=== PATIENT | male | born 1965 | race Caucasian/White ===

== ENCOUNTER 2019-03-19 04:02 | Inpatient (IN) | payer MEDICAID ==
[~2019-03-19] VITALS: Ht 180.3 cm; Wt 106.1 kg
[2019-03-19] MEDS ORDERED: VANCOMYCIN PER PHARMACY MC PRN (04:30)
[2019-03-19] MEDS ORDERED: MORPHINE SULFATE 4 MG/ML VIAL. IV PRN (04:30)
[2019-03-19] MEDS ORDERED: ONDANSETRON PF 4 MG/2 ML VIAL. IV PRN (04:30)
[2019-03-19 04:42] LABS: BASO # 0.1 x10^3/uL (0.0-0.2); BASO % 1 % (0-3); EOS # 0.6 x10^3/uL (0.0-0.7); EOS % 6 % (0-3); HEMATOCRIT 47.6 % (39.0-53.0); HEMOGLOBIN 16.7 g/dL (13.0-17.5); LYMPH # 2.5 x10^3/uL (1.0-4.8); LYMPH % 23 % (24-48); MEAN CORPUSCULAR HEMOGLOBIN 30 pg (25-35); MEAN CORPUSCULAR HGB CONC 35 g/dL (31-37); MEAN CORPUSCULAR VOLUME 86 fL (79-100); MONO # 1.3 x10^3/uL (0.0-1.1); MONO % 12 % (0-9); NEUT # 6.2 x10^3uL (1.8-7.7); NEUT % 58 % (31-73); PLATELET COUNT 203 x10^3/uL (140-400); RED BLOOD COUNT 5.55 x10^6/uL (4.30-5.70); RED CELL DISTRIBUTION WIDTH 13.6 % (11.5-14.5); WHITE BLOOD COUNT 10.8 x10^3/uL (4.0-11.0)
[2019-03-19 04:56] LABS: CALCIUM 9.6 mg/dL (8.5-10.1); CREATININE 1.1 mg/dL (0.7-1.3); GFR 70.6; POTASSIUM 3.6 mmol/L (3.5-5.1)
[2019-03-19] MEDS ORDERED: IV NORMAL SALINE 1000ML BAG 1,000 ML IV ONE (05:00)
[2019-03-19] MEDS ORDERED: oxyCODONE IR 5 MG TABLET PO ONE (05:00)
[2019-03-19 05:01] LABS: ALBUMIN 4.1 g/dL (3.4-5.0); TOTAL BILIRUBIN 1.8 mg/dL (0.2-1.0); TOTAL PROTEIN 8.2 g/dL (6.4-8.2)
--- NOTE | 2019-03-19 05:57 | NUR ---
Pharmacy Vancomycin Dosing Note S:Consulted to monitor and dose vancomycin started 03/19/19. O:BROCK SANTOS is a 53 year old M with Cellulitis . Height: 5 feet, 0 inches Weight: 97.087372 kg [place] Body Weight: 50.00 Adjusted Body Weight: 69.00 Dosing Weight: Actual Other Antibiotics: LABS: Last BUN: 28 Last Creatinine: 1.1 Creatinine Clearance: 77 mL/min Last WBC: 10.8 Last Procalcitonin: Tmax (past 24 hours): Microbiology: I/O: Drug Levels: Last level: on at Last dose given 03/19/19 at 0600 Vancomycin Dosing: Loading Dose: 2000 mg x1 Dosing Weight: Actual Target Trough: 10-20 A: Based on: WT AND CRCL P: 1. Begin Vancomycin 1500 mg IV q12h 2. Follow up Trough level on 03/20/19 at 1730 3. Pharmacy will continue to monitor, follow and adjust therapy as needed. LUIS ENRIQUE MYERS RPH, 03/19/19 0557 Signed: 03/19/19 at 0557 by LUIS ENRIQUE MYERS RPH PHA
[2019-03-19] MEDS ORDERED: VANCOMYCIN 2 GM in IV NORMAL SALINE 500ML BAG 500 ML IV ONE (06:00)
[2019-03-19] MEDS: IV NORMAL SALINE 1000ML BAG 1,000 ML IV SCH ×3 (06:00→20:42)
--- NOTE | 2019-03-19 06:04 | PHYS DOC ---
Past Medical History Past Medical History: Kidney Stone, Other Additional Past Medical Histor: CIRRHOSIS, ADHD Past Surgical History: Other Additional Past Surgical Histo: BILATERAL BLK AMPUTATION, SKIN GRAFTING Alcohol Use: Occasionally Drug Use: Marijuana Adult General Chief Complaint Chief Complaint: WOUND CHECK HPI HPI Patient is a 53 year old m p/w two days of redness to right stump drainage noted no fever says he lives in an apartment aopparenlty had b/l bka due to melvin in the past denies diabetes does smoke does have hx of etoh and drugs he tells me, somewhat vague unknown last use Review of Systems Review of Systems Constitutional: Denies fever or chills [] Eyes: Denies change in visual acuity, redness, or eye pain [] HENT: Denies nasal congestion or sore throat [] Respiratory: Denies cough or shortness of breath [] Cardiovascular: No additional information not addressed in HPI [] Neurologic: Denies headache, focal weakness or sensory changes [] Endocrine: Denies polyuria or polydipsia [] All other systems were reviewed and found to be within normal limits, except as documented in this note. Current Medications Current Medications Current Medications Medications (Trade) Dose Ordered Sig/Meme Start Time Stop Time Status Last Admin Dose Admin Morphine Sulfate (Morphine Sulfate) 4 mg PRN Q2HR PRN 03/19/19 04:30 03/20/19 04:29 Ondansetron HCl (Zofran) 4 mg PRN Q8HRS PRN 03/19/19 04:30 03/20/19 04:29 Vancomycin HCl (Vanco Per Pharmacy) 1 each PRN DAILY PRN 03/19/19 04:30 03/19/19 05:55 1 EACH Allergies Allergies Allergies Coded Allergies Type Severity Reaction Last Updated Verified codeine Allergy Intermediate 03/19/19 Yes shellfish derived Allergy Intermediate 03/19/19 Yes Physical Exam Physical Exam Constitutional: Well developed, well nourished, no acute distress, non-toxic appearance. [] HENT: Normocephalic, atraumatic, bilateral external ears normal, oropharynx moist, no oral exudates, nose normal. [] Eyes: PERRLA, EOMI, conjunctiva normal, no discharge. [] Neck: Normal range of motion, no tenderness, supple, no stridor. [] Cardiovascular:mild tachy no murmurs Lungs & Thorax: Bilateral breath sounds clear to auscultation [] Abdomen: Bowel sounds normal, soft, no tenderness, no masses, no pulsatile masses. [] Skin: see normal Extremities:right stump has erythema tenderness, there is some blistering noted at the surgical incision noted, no active drainage, possible mild fluctuance noted. there are skingrafts noted on thigh b/l. left stump looks normal Neurologic: Alert and oriented X 3, normal motor function, normal sensory function, no focal deficits noted. [] Psychologic: Affect normal, judgement normal, mood normal. [] Current Patient Data Vital Signs Vital Signs Date Time Temp Pulse Resp B/P (MAP) Pulse Ox O2 Delivery O2 Flow Rate FiO2 03/19/19 04:05 98.0 104 18 118/82 (94) 95 Room Air 98.0 Lab Values Laboratory Tests Test 03/19/19 04:30 White Blood Count 10.8 x10^3/uL (4.0-11.0) Red Blood Count 5.55 x10^6/uL (4.30-5.70) Hemoglobin 16.7 g/dL (13.0-17.5) Hematocrit 47.6 % (39.0-53.0) Mean Corpuscular Volume 86 fL (79-100) Mean Corpuscular Hemoglobin 30 pg (25-35) Mean Corpuscular Hemoglobin Concent 35 g/dL (31-37) Red Cell Distribution Width 13.6 % (11.5-14.5) Platelet Count 203 x10^3/uL (140-400) Neutrophils (%) (Auto) 58 % (31-73) Lymphocytes (%) (Auto) 23 % (24-48) L Monocytes (%) (Auto) 12 % (0-9) H Eosinophils (%) (Auto) 6 % (0-3) H Basophils (%) (Auto) 1 % (0-3) Neutrophils # (Auto) 6.2 x10^3uL (1.8-7.7) Lymphocytes # (Auto) 2.5 x10^3/uL (1.0-4.8) Monocytes # (Auto) 1.3 x10^3/uL (0.0-1.1) H Eosinophils # (Auto) 0.6 x10^3/uL (0.0-0.7) Basophils # (Auto) 0.1 x10^3/uL (0.0-0.2) Sodium Level 136 mmol/L (136-145) Potassium Level 3.6 mmol/L (3.5-5.1) Chloride Level 99 mmol/L (98-107) Carbon Dioxide Level 21 mmol/L (21-32) Anion Gap 16 (6-14) H Blood Urea Nitrogen 28 mg/dL (8-26) H Creatinine 1.1 mg/dL (0.7-1.3) Estimated GFR (Cockcroft-Gault) 70.6 BUN/Creatinine Ratio 25 (6-20) H Glucose Level 126 mg/dL (70-99) H Lactic Acid Level 1.4 mmol/L (0.4-2.0) Calcium Level 9.6 mg/dL (8.5-10.1) Total Bilirubin 1.8 mg/dL (0.2-1.0) H Aspartate Amino Transferase (AST) 50 U/L (15-37) H Alanine Aminotransferase (ALT) 31 U/L (16-63) Alkaline Phosphatase 90 U/L (46-116) Total Protein 8.2 g/dL (6.4-8.2) Albumin 4.1 g/dL (3.4-5.0) Albumin/Globulin Ratio 1.0 (1.0-1.7) Laboratory Tests 03/19/19 04:30 Laboratory Tests 03/19/19 04:30 EKG EKG [] Radiology/Procedures Radiology/Procedures [] Impressions: my interp knee no osteo Course & Med Decision Making Course & Med Decision Making Pertinent Labs and Imaging studies reviewed. (See chart for details) []53 yo m p/w stump infection, definitely cellulitis, some concern clinically for fluctuance xray no bony change by my read. mild tachycardia, bp okay. given location and appearnce, admitted to [facility] for iv antibiotics and routine inpt ortho consult. lactic wbc normal no fever Dragon Disclaimer Dragon Disclaimer This electronic medical record was generated, in whole or in part, using a voice recognition dictation system. Departure Departure Impression: Primary Impression: Cellulitis Disposition: ADMITTED INPATIENT Condition: GOOD Referrals: NO PCP (PCP) ATA ODEN MD March 19, 2019 06:03
--- NOTE | 2019-03-19 06:21 | RAD ---
KNEE RIGHT 3V Clinical Indication: Redness, swelling. Comparison: None. Findings: There is gpmzn-[id number] amputation. Postsurgical margins of the tibia and fibula. No bony erosion is seen. There is single lateral skin staple at the proximal diaphysis of the fibula. No acute fracture. Question Kalpana-Stieda lesion of the medial distal femur. Patella in anatomic position. No knee joint effusion is appreciated. IMPRESSION: No acute bone abnormality. Electronically signed by: Cem Peralta MD (03/19/2019 6:18 AM) [facility] [id number]
[2019-03-19 07:00] VITALS: BP 109/72
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
[2019-03-19] MEDS ORDERED: MINERAL OIL/PETROLATUM TOPICAL CREAM 113GM JAR. TP PRN (09:30)
[2019-03-19] MEDS ORDERED: diphenhydrAMINE 50 MG/ML VIAL IVP PRN (09:30)
[2019-03-19] MEDS ORDERED: HYDROcodone/APAP 7.5/325MG 1 TAB TABLET PO PRN (09:30)
[2019-03-19] MEDS ORDERED: NICOTINE POLACRILEX 2MG GUM PACKAGE of 12. BC PRN ×2 (09:30→15:45)
[2019-03-19] MEDS: oxyCODONE IR 5 MG TABLET PO PRN ×2 (10:13→20:52)
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
[2019-03-19] MEDS: NICOTINE 14MG PATCH. TD PRN (10:26)
[2019-03-19 10:41] LABS: BILIRUBIN,URINE SMALL (NEG); CLARITY,URINE CLEAR; COLOR,URINE AMBER; NITRITE,URINE NEGATIVE (NEG); PH,URINE 5.5; PROTEIN,URINE NEGATIVE (NEG-TRACE); UROBILINOGEN,URINE 0.2 mg/dL (0.2 mg/dL)
[2019-03-19 10:42] VITALS: BP 111/78
[2019-03-19 10:46] LABS: BACTERIA,URINE FEW /HPF (0-FEW); RBC,URINE 0 /HPF (0-2)
[2019-03-19 13:56] LABS: AMPHETAMINE/METHAMPHETAMINE POS (NEG); BARBITURATES NEG (NEG); BENZODIAZEPINES POS (NEG); CANNABINOIDS POS (NEG); COCAINE NEG (NEG); METHADONE NEG (NEG); OPIATES NEG (NEG); PHENCYCLIDINE NEG (NEG)
[2019-03-19 14:44] VITALS: BP 115/72
[2019-03-19] MEDS ORDERED: NICOTINE 14MG PATCH. TD PRN (15:45)
--- NOTE | 2019-03-19 15:45 | NUR ---
Wound Care Pt seen for wound care consultation re: R BKA blisters, admission photo in chart. Pt has multiple pus-filled blisters along distal BKA stump, with fluctuance and dark red coloration. Pt very talkative and moving about, sweating and worked up about needing new stump covers. R BKA covered with an Aquacel foam dressing for padding and protection, will await Dr. Poole's recommendations and f/u later in the week to reevaluate.
--- NOTE | 2019-03-19 15:49 | NUR ---
SW consulted for IV abx needs. Chart reviewed. Pt does have [place] medicaid which will cover home infusion. SW will need type of IV abx, and to assess actual cost. Will continue to follow. Addendum: 03/19/19 at 1551 by ROSSY VO *and duration to assess actual cost. Addendum: 03/20/19 at 0819 by ROSSY VO DISREGARD above note. Entered in wrong pt.
[2019-03-19] MEDS: VANCOMYCIN 1.5 GM in IV NORMAL SALINE 500ML BAG 500 ML IV SCH ×2 (17:12→20:40)
[2019-03-19 19:00] VITALS: BP 116/81
[2019-03-19] MEDS: LACTOBACILLUS RHAMNOSUS GG 1 CAPSULE. PO SCH (20:36)
[2019-03-19 23:00] VITALS: BP 125/99
[2019-03-20 03:00] VITALS: BP 104/65
[2019-03-20 07:00] VITALS: BP 126/93
[2019-03-20] MEDS: LACTOBACILLUS RHAMNOSUS GG 1 CAPSULE. PO SCH (08:13)
[2019-03-20] MEDS: oxyCODONE IR 5 MG TABLET PO PRN (08:13)
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
[2019-03-20 11:00] VITALS: BP 113/86
[2019-03-20] MEDS: NICOTINE 14MG PATCH. TD PRN (12:45)
[2019-03-20] MEDS ORDERED: Nicotine 14MG TD (14:01)
[2019-03-20] MEDS ORDERED: CEPH-264 PO (14:01)
[2019-03-20] MEDS ORDERED: SULF1TAB24 PO (14:01)
[2019-03-20] MEDS ORDERED: OXYC5TAB4 PO (14:01)
--- NOTE | 2019-03-20 14:34 | NUR ---
SW following pt for anticipated dc needs. Chart reviewed and RUEL RN. Pt lives at home with friends. Pt had some questions regarding SSI but it is resolved. No dc needs noted at this time.
--- NOTE | 2019-03-20 14:43 | PDOC ---
PROGRESS NOTES Subjective Subjective No new complaints. Objective Objective Vital Signs Date Time Temp Pulse Resp B/P (MAP) Pulse Ox O2 Delivery O2 Flow Rate FiO2 03/20/19 11:00 97.5 100 18 113/86 (95) 95 Room Air 97.5 Intake and Output 03/20/19 07:00 Intake Total 1380 ml Balance 1380 ml Intake Oral 1380 ml # Voids 3 Physical Exam Physical Exam He is alert,in no acute distress and he continues with redness and edema of right BK stump. He is being seen by [facility]. Plan Plan of Care To continue present care efforts as tolerated. Comment Review of Relevant I have reviewed the following items devon (where applicable) has been applied. Labs Laboratory Tests Test 03/19/19 04:30 03/19/19 10:20 White Blood Count 10.8 x10^3/uL (4.0-11.0) Red Blood Count 5.55 x10^6/uL (4.30-5.70) Hemoglobin 16.7 g/dL (13.0-17.5) Hematocrit 47.6 % (39.0-53.0) Mean Corpuscular Volume 86 fL (79-100) Mean Corpuscular Hemoglobin 30 pg (25-35) Mean Corpuscular Hemoglobin Concent 35 g/dL (31-37) Red Cell Distribution Width 13.6 % (11.5-14.5) Platelet Count 203 x10^3/uL (140-400) Neutrophils (%) (Auto) 58 % (31-73) Lymphocytes (%) (Auto) 23 % (24-48) Monocytes (%) (Auto) 12 % (0-9) Eosinophils (%) (Auto) 6 % (0-3) Basophils (%) (Auto) 1 % (0-3) Neutrophils # (Auto) 6.2 x10^3uL (1.8-7.7) Lymphocytes # (Auto) 2.5 x10^3/uL (1.0-4.8) Monocytes # (Auto) 1.3 x10^3/uL (0.0-1.1) Eosinophils # (Auto) 0.6 x10^3/uL (0.0-0.7) Basophils # (Auto) 0.1 x10^3/uL (0.0-0.2) Sodium Level 136 mmol/L (136-145) Potassium Level 3.6 mmol/L (3.5-5.1) Chloride Level 99 mmol/L (98-107) Carbon Dioxide Level 21 mmol/L (21-32) Anion Gap 16 (6-14) Blood Urea Nitrogen 28 mg/dL (8-26) Creatinine 1.1 mg/dL (0.7-1.3) Estimated GFR (Cockcroft-Gault) 70.6 BUN/Creatinine Ratio 25 (6-20) Glucose Level 126 mg/dL (70-99) Lactic Acid Level 1.4 mmol/L (0.4-2.0) Calcium Level 9.6 mg/dL (8.5-10.1) Total Bilirubin 1.8 mg/dL (0.2-1.0) Aspartate Amino Transf (AST/SGOT) 50 U/L (15-37) Alanine Aminotransferase (ALT/SGPT) 31 U/L (16-63) Alkaline Phosphatase 90 U/L (46-116) Total Protein 8.2 g/dL (6.4-8.2) Albumin 4.1 g/dL (3.4-5.0) Albumin/Globulin Ratio 1.0 (1.0-1.7) Urine Collection Type Unknown Urine Color [place] Urine Clarity Clear Urine pH 5.5 Urine Specific [place] >=1.030 Urine Protein Negative mg/dL (NEG-TRACE) Urine Glucose (UA) Negative mg/dL (NEG) Urine Ketones (Stick) 15 mg/dL (NEG) Urine Blood Negative (NEG) Urine Nitrite Negative (NEG) Urine Bilirubin Small (NEG) Urine Urobilinogen Dipstick 0.2 mg/dL (0.2 mg/dL) Urine Leukocyte Esterase Negative (NEG) Urine RBC 0 /HPF (0-2) Urine WBC 1-4 /HPF (0-4) Urine Bacteria Few /HPF (0-FEW) Urine Mucus Marked /LPF Urine Opiates Screen Neg (NEG) Urine Methadone Screen Neg (NEG) Urine Barbiturates Neg (NEG) Urine Phencyclidine Screen Neg (NEG) Urine Amphetamine/Methamphetamine Pos (NEG) Urine Benzodiazepines Screen Pos (NEG) Urine Cocaine Screen Neg (NEG) Urine Cannabinoids Screen Pos (NEG) Urine Ethyl Alcohol Neg (NEG) Microbiology 03/19/19 Blood Culture - Preliminary, Resulted NO GROWTH AFTER 1 DAY Medications Current Medications Vancomycin HCl (Vanco Per Pharmacy) 1 each PRN DAILY PRN MC SEE COMMENTS Last administered on 03/19/19at 05:55; Start 03/19/19 at 04:30; Stop 03/20/19 at 00:34; Status DC Sodium Chloride 1,000 ml @ 1,000 mls/hr 1X ONCE IV Last administered on 03/19/19at 05:30; Start 03/19/19 at 05:00; Stop 03/19/19 at 05:59; Status DC Oxycodone HCl (Roxicodone) 5 mg 1X ONCE PO Last administered on 03/19/19at 05:29; Start 03/19/19 at 05:00; Stop 03/19/19 at 05:01; Status DC Ondansetron HCl (Zofran) 4 mg PRN Q8HRS PRN IV NAUSEA/VOMITING 1ST CHOICE; Start 03/19/19 at 04:30; Stop 03/20/19 at 00:31; Status DC Morphine Sulfate (Morphine Sulfate) 4 mg PRN Q2HR PRN IV SEVERE PAIN; Start 03/19/19 at 04:30; Stop 03/20/19 at 00:31; Status DC Sodium Chloride 1,000 ml @ 75 mls/hr [id number] IV Last administered on 03/19/19at 20:42; Start 03/19/19 at 06:00; Stop 03/20/19 at 00:31; Status DC Vancomycin HCl 2 gm/Sodium Chloride 500 ml @ 250 mls/hr 1X ONCE IV Last administered on 03/19/19at 05:33; Start 03/19/19 at 06:00; Stop 03/20/19 at 00:31; Status DC Vancomycin HCl 1.5 gm/Sodium Chloride 500 ml @ 250 mls/hr Q12H IV Last administered on 03/19/19at 20:40; Start 03/19/19 at 18:00; Stop 03/20/19 at 00:31; Status DC Vancomycin HCl (Vancomycin Trough Level) 1 each 1X ONCE MC ; Start 03/20/19 at 17:30; Stop 03/20/19 at 17:30; Status DC Oxycodone HCl (Roxicodone) 5 mg PRN Q6HRS PRN PO PAIN 2ND CHOICE Last administered on 03/20/19at 08:13; Start 03/19/19 at 09:30 Acetaminophen/ Hydrocodone Bitart (Lortab 7.5/325) 1 tab PRN Q6HRS PRN PO PAIN 1ST CHOICE; Start 03/19/19 at 09:30; Stop 03/20/19 at 00:31; Status DC Diphenhydramine HCl (Benadryl) 25 mg PRN Q6HRS PRN IVP ITCHING; Start 03/19/19 at 09:30; Stop 03/20/19 at 00:31; Status DC Multi-Ingred Cream/Lotion/Oil/ Oint (Hydrocerin Cream) 1 shivani PRN Q1HR PRN TP DRY SKIN / SCALING; Start 03/19/19 at 09:30 Nicotine Polacrilex (Nicorette Gum) 1 each PRN Q1HR PRN BC SMOKING CESSATION; Start 03/19/19 at 09:30 Nicotine (Nicoderm Cq 14mg) 1 patch PRN DAILY PRN TD SMOKING CESSATION Last administered on 03/20/19at 12:45; Start 03/19/19 at 09:30 Lactobacillus Rhamnosus (Culturelle) 1 cap BID PO Last administered on 03/20/19at 08:13; Start 03/19/19 at 21:00 Nicotine Polacrilex (Nicorette Gum) 1 each PRN Q1HR PRN BC SMOKING CESSATION; Start 03/19/19 at 15:45; Status UNV Nicotine (Nicoderm Cq 14mg) 1 patch PRN DAILY PRN TD SMOKING CESSATION; Start 03/19/19 at 15:45; Status UNV Active Scripts Active [Nicotine 14MG] 1 PATCH Patch 1 Patch TD PRN DAILY PRN 30 Days Bactrim Ds Tablet (Sulfamethoxazole/Trimethoprim) 1 Each Tablet 1 Tab PO BID 7 Days Keflex (Cephalexin) 500 Mg Capsule 1 Cap PO BID 7 Days Oxycodone Hcl Immed.release (Oxycodone Hcl) 5 Mg Tablet 5 Mg PO PRN Q6HRS PRN 6 Days Vitals/I & O Vital Sign - Last 24 Hours 03/19/19 03/19/19 03/19/19 03/19/19 14:44 19:00 19:50 20:52 Temp 98.0 97.9 98.0 97.9 Pulse 95 106 Resp 18 20 18 B/P (MAP) 115/72 (86) 116/81 (93) Pulse Ox 95 95 95 O2 Delivery Room Air Room Air Room Air Room Air 03/19/19 03/19/19 03/20/19 03/20/19 21:52 23:00 03:00 07:00 Temp 99.0 98.2 97.5 99.0 98.2 97.5 Pulse 106 102 86 Resp 18 20 20 18 B/P (MAP) 125/99 (108) 104/65 (78) 126/93 (104) Pulse Ox 95 94 94 94 O2 Delivery Room Air Room Air Room Air Room Air 03/20/19 03/20/19 03/20/19 08:00 08:13 11:00 Temp 97.5 97.5 Pulse 100 Resp 18 B/P (MAP) 113/86 (95) Pulse Ox 95 O2 Delivery Room Air Room Air Room Air Intake and Output 03/19/19 03/19/19 03/20/19 15:00 23:00 07:00 Intake Total 300 ml 240 ml 840 ml Balance 300 ml 240 ml 840 ml HAYDEE VARGAS MD March 20, 2019 14:43
[2019-03-20 14:55] VITALS: BP 141/93
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
--- NOTE | 2019-03-20 17:30 | NUR ---
Patient was discharged from the unit around 1630. Patient was glad to hear about being able to go home, but then after reflecting on it for some time decided he wasn't ready and became beligerent. The cab company had already been called and had arrived but the patient was refusing to leave even though he had signed the discharge paperwork. Nursing dairy farm supervisor was contacted regarding the situation and she then contacted security. Patient left the unit at 1710 in a wheelchair with all his belongings accompanied by two staff and security. Patient got into a cab with his belongings and left the property at 1728.
== END 2019-03-20 17:29 | disposition home or self-care (01) | DRG 565 ==
LOC: ER 04:02 → 5 NORTH 04:30 → UNDODISIN 12:50
PROVIDERS: ADMIT Internal Medicine; ATTEND Internal Medicine
DX: T87.43 Infection of amputation stump, right lower extremity (principal); L03.115 Cellulitis of right lower limb; F17.200 Nicotine dependence, unspecified, uncomplicated; F90.9 Attention-deficit hyperactivity disorder, unspecified type; K74.60 Unspecified cirrhosis of liver; F12.90 Cannabis use, unspecified, uncomplicated; M19.90 Unspecified osteoarthritis, unspecified site; Y83.5 Amputation of limb(s) as the cause of abnormal reaction of the patient, or of later complication, without mention of misadventure at the time of the procedure; Z87.820 Personal history of traumatic brain injury; Z89.512 Acquired absence of left leg below knee; Z87.442 Personal history of urinary calculi; Z88.8 Allergy status to other drugs, medicaments and biological substances; Z91.013 Allergy to seafood
CPT/HCPCS: 36415; 73562; 80053; 80307; 81001; 83605; 85025; 87040; 96365; J3370; J7030; J7040; 99285-25